=== PATIENT | female | born 1965 ===

== ENCOUNTER 2017-11-18 09:10 | Day surgery (SDC) | payer MEDICAID ==
[2017-11-18] MEDS ORDERED: Lactated Ringer's 1,000 ML IV ONE (09:45)
[2017-11-18] MEDS ORDERED: Lidocaine 2% MPF (5 ml) Inj ONE (10:53)
[2017-11-18] MEDS ORDERED: Propofol 10 mg/ml Inj (20 ML) ONE (10:53)
[2017-11-18 11:30] VITALS: O2SAT 100
[2017-11-18 11:34] VITALS: BP 118/66; PULSE 56; RESP 18; TEMP 97.5
== END 2017-11-18 11:49 | disposition home or self-care (01) ==
LOC: H.ENDO 09:10
PROVIDERS: ATTEND Internal Medicine Gastroenterology
DX: Z12.11 Encounter for screening for malignant neoplasm of colon (principal); I10 Essential (primary) hypertension; K62.1 Rectal polyp; K64.8 Other hemorrhoids; K29.50 Unspecified chronic gastritis without bleeding; K30 Functional dyspepsia
CPT/HCPCS: 43239; 45380; 88305; J2704; J7120